=== PATIENT | male | born 1975 | race Two or more races ===

== ENCOUNTER 2020-07-06 21:19 | Emergency (ER) | payer OTHER ==
[~2020-07-06] VITALS: Ht 180.3 cm; Wt 135.2 kg
[~2020-07-06 21:19] MED LIST: GLIPIZIDE10 MG/BOTT PO; LANTUS100 U/ML SQ; METFORMIN HCL500 MG PO
[2020-07-06] MEDS ORDERED: GLIPIZIDE XL10 MG PO (21:35)
[2020-07-07] MEDS ORDERED: TUSNEL LIQUID178 ML PO (01:34)
[2020-07-07] MEDS ORDERED: ZITHROMAX500 MG PO (01:34)
== END 2020-07-07 02:41 | disposition home or self-care (01) ==
LOC: ER 21:19
DX: U07.1 COVID-19 (principal); R50.9 Fever, unspecified; B34.9 Viral infection, unspecified